=== PATIENT | female | born 1985 | race Caucasian/White ===

== ENCOUNTER 2021-03-15 11:48 | Emergency (ER) | payer SELFPAY ==
--- OUTSIDE RECORDS SUMMARY | 2021-03-15 11:49 | XMS REPORT | Continuity of Care Document ---
:1985 Author Organization [facility] t Address [address] [place] [address] Care Team Providers Name Role Phone Unavailable Unavailable Unavailable Problems This patient has no known problems. Allergies, Adverse Reactions, Alerts This patient has no known allergies or adverse reactions. Medications This patient has no known medications. Procedures This patient has no known procedures. Results This patient has no known results.
[2021-03-15 13:44] LABS: SARS-COV-2 RT PCR NEGATIVE (NEGATIVE)
--- NOTE | 2021-03-15 14:37 | EDPHYS ---
Physician Documentation [facility] Name: Julia Hernandez Age: 35 yrs Sex: Female : 1985 Arrival Date: 03/15/2021 Time: 11:50 Bed Waiting Private MD: ED Physician Asher Garcia HPI: 03/15 17:14 This 35 yrs old Female presents to ER via Ambulatory with complaints of kb Cough, Vomiting, Sore Throat, Chest Pain. 17:14 The patient or guardian reports cough, flu symptoms, low-grade fever, myalgias. Onset: kb The symptoms/episode began/occurred 2 day(s) ago. Severity of symptoms: At their worst the symptoms were mild, in the emergency department the symptoms are unchanged. Modifying factors: The symptoms are alleviated by nothing, the symptoms are aggravated by nothing. Associated signs and symptoms: Pertinent positives: diarrhea, sore throat, vomiting. The patient has not experienced similar symptoms in the past. The patient has not recently seen a physician. Pt reports malaise, cough, diarrhea and sore throat that started 2 days ago. States "I just wanted to make sure I didn't have the virus.". 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 - Social history:: Smoking status: Patient reports the use of cigarette tobacco products, smokes one-half pack cigarettes per day, Patient uses alcohol, weekly. ROS: 17:15 Cardiovascular: Negative for chest pain, palpitations, and edema. kb 17:15 Constitutional: Positive for body aches, fatigue, malaise. 17:15 ENT: Positive for sore throat. 17:15 Respiratory: Positive for cough. 17:15 Abdomen/GI: Positive for nausea, vomiting, and diarrhea. 17:15 All other systems are negative. Exam: 17:15 Constitutional: This is a well developed, well nourished patient who is awake, alert, kb and in no acute distress. Head/Face: Normocephalic, atraumatic. ENT: Moist Mucous membranes Cardiovascular: Regular rate and rhythm with a normal S1 and S2. No gallops, murmurs, or rubs. No pulse deficits. Respiratory: Respirations even and unlabored. No increased work of breathing, no retractions or nasal flaring. Abdomen/GI: Soft, non-tender. No distention Skin: Warm, dry with normal turgor. Normal color. MS/ Extremity: Pulses equal, no cyanosis. Neurovascular intact. Full, normal range of motion. Neuro: Awake and alert, GCS 15, oriented to person, place, time, and situation. Moves all extremities. Normal gait. Psych: Awake, alert, with orientation to person, place and time. Behavior, mood, and affect are within normal limits. Vital Signs: 12:00 BP 162 / 114; Pulse 99; Resp 20; Temp 98.0(O); Pulse Ox 100% ; Weight 97.52 kg (R); kg Height 5 ft. 10 in. (177.80 cm) (R); Pain 5/10; 12:00 Body Mass Index 30.85 (97.52 kg, 177.80 cm) kg MDM: 12:02 Patient medically screened. kb 17:13 Data reviewed: vital signs, nurses notes. Data interpreted: Pulse oximetry: on room air kb is 100 %. Interpretation: normal. Counseling: I had a detailed discussion with the patient and/or guardian regarding: the historical points, exam findings, and any diagnostic results supporting the discharge/admit diagnosis, lab results, the need for outpatient follow up, a family practitioner, to return to the emergency department if symptoms worsen or persist or if there are any questions or concerns that arise at home. 03/15 12:06 Order name: Strep; Complete Time: 12:59 kg 03/15 12:56 Order name: Throat Culture EDMS 03/15 13:45 Order name: COVID-19/FLU A+B; Complete Time: 13:48 EDMS Administered Medications: No medications were administered Disposition: 03/16 08:17 Co-signature as Attending Physician, Asher Garcia MD I agree with the assessment and sunday plan of care. Disposition Summary: 03/15/21 14:36 Discharge Ordered Location: Home kb Condition: Stable kb Diagnosis - Acute upper respiratory infection, unspecified kb Followup: kb - With: Emergency Department - When: As needed - Reason: Worsening of condition Followup: kb - With: Private Physician - When: 2 - 3 days - Reason: Recheck today's complaints, Continuance of care, Re-evaluation by your physician Discharge Instructions: - Discharge Summary Sheet kb - Viral Respiratory Infection, [id number] kb Forms: - Medication Reconciliation Form kb - Thank You Letter kb - Antibiotic Education kb - Prescription Opioid Use kb Signatures: Dispatcher [employer] EDAngelica Douglas, CARTER BENÍTEZ-Asher Romo MD MD cha Graham, Kristen, RN RN kg Corrections: (The following items were deleted from the chart) 03/15 12:12 12:04 PSHx: None; kg kg 12:12 12:08 PMHx: Kidney stent placement and removal; kg kg 12:36 12:03 Influenza Screen (A \\T\\ B)+BA.LAB.BRZ ordered. EDMS EDMS 12:37 12:03 CORONAVIRUS+MR.LAB.BRZ ordered. EDMS EDMS
--- NOTE | 2021-03-15 14:37 | ER ---
Nurse's Notes [facility] Name: Julia Hernandez Age: 35 yrs Sex: Female : 1985 Arrival Date: 03/15/2021 Time: 11:50 Bed Waiting Private MD: Diagnosis: Acute upper respiratory infection, unspecified Presentation: 03/15 12:00 Chief complaint: Patient states: Pt stated, " I've been feeling bad and coughing x 2 kg days, vomiting starting today.". Coronavirus screen: Vaccine status: Patient reports being unvaccinated. Ebola Screen: Patient negative for fever greater than or equal to 101.5 degrees Fahrenheit, and additional compatible Ebola Virus Disease symptoms Patient denies exposure to infectious person. Patient denies travel to an Ebola-affected area in the 21 days before illness onset. Initial Sepsis Screen: Does the patient meet any 2 criteria? No. Patient's initial sepsis screen is negative. Does the patient have a suspected source of infection? No. Patient's initial sepsis screen is negative. Risk Assessment: Do you want to hurt yourself or someone else? Patient reports no desire to harm self or others. Onset of symptoms was March 12, 2021. 12:00 Method Of Arrival: Ambulatory kg 12:00 Acuity: REJI 4 kg Triage Assessment: 12:04 General: Appears in no apparent distress. Behavior is calm, cooperative, appropriate kg for age, quiet. Pain: Complains of pain in mid-sternal area. GI: Reports nausea, vomiting. 12:04 EENT: Reports pain when swallowing. GI: Reports diarrhea. 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 - Social history:: Smoking status: Patient reports the use of cigarette tobacco products, smokes one-half pack cigarettes per day, Patient uses alcohol, weekly. Screenin:06 Abuse screen: Denies threats or abuse. Denies injuries from another. Nutritional kg screening: No deficits noted. Tuberculosis screening: No symptoms or risk factors identified. Fall Risk None identified. Assessment: 14:50 Reassessment: Patient appears in no apparent distress at this time. Patient and/or ss family updated on plan of care and expected duration. Pain level reassessed. Patient is alert, oriented x 3, equal unlabored respirations, skin warm/dry/pink. Respiratory: Respiratory effort is even, unlabored. Vital Signs: 12:00 BP 162 / 114; Pulse 99; Resp 20; Temp 98.0(O); Pulse Ox 100% ; Weight 97.52 kg (R); kg Height 5 ft. 10 in. (177.80 cm) (R); Pain 5/10; 12:00 Body Mass Index 30.85 (97.52 kg, 177.80 cm) kg ED Course: 11:50 Patient arrived in ED. rg4 11:57 Angelica Mendoza FNP-C [facility]. kb 11:57 Asher Garcia MD is Attending Physician. kb 12:02 Triage completed. kg 12:04 Arm band placed on. kg 12:06 Patient has correct armband on for positive identification. kg 14:50 Assist provider with bone marrow aspiration. Patient did not have IV access during this kg emergency room visit. Administered Medications: No medications were administered Outcome: 14:36 Discharge ordered by MD. kb 14:50 Discharged to home ambulatory. kg 14:50 Condition: good 14:50 Discharge instructions given to patient, Instructed on discharge instructions, follow up and referral plans. Demonstrated understanding of instructions, follow-up care. 14:50 Discharged to home ambulatory. ss 14:50 Condition: good 14:51 Patient left the ED. ss Signatures: Angelica Mendoza FNP-C FNP-Ckb Smirch, Shelby RN RN Ivy Alvarez rg4 Rocio Varghese RN RN Corrections: (The following items were deleted from the chart) 12:12 12:04 PSHx: None; kg kg 12:12 12:08 PMHx: Kidney stent placement and removal; kg kg
[2021-03-15 15:01] VITALS: BP 162/114; TEMP 98; O2SAT 100
== END 2021-03-15 14:51 | disposition home or self-care (01) ==
LOC: ER 11:48
DX: J06.9 Acute upper respiratory infection, unspecified (principal); Z20.822 Contact with and (suspected) exposure to COVID-19; F17.210 Nicotine dependence, cigarettes, uncomplicated
CPT/HCPCS: 0240U; 87070; 87081; 99284